=== PATIENT | male | born 2005 | race Caucasian/White ===

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

== ENCOUNTER 2024-05-31 20:58 | Emergency (ER) | payer OTHER ==
[2024-05-31 21:02] VITALS: TEMP 97.7
[2024-05-31] MEDS: ACETAMINOPHEN TAB 325 MG TAB PO STA (21:36)
[2024-05-31] MEDS: SODIUM CHLORIDE 0.9% 1,000 ML IV STA (21:37)
[2024-05-31 21:38] LABS: Basophils % (A) 0 %; Eosinophils # (A) 0.2 k/uL (0-0.7); Eosinophils % (A) 2 %; HCT 43.5 % (39.0-53.0); HGB 15.1 gm/dL (13.0-17.5); Lymphocytes # (A) 1.3 k/uL (1.0-4.8); Lymphocytes % (A) 18 %; MCH 31.4 pg (25.0-35.0); MCHC 34.7 g/dL (31.0-37.0); MCV 90.4 fL (80.0-100.0); Mean Platelet Volume 9.5; Monocytes # (A) 0.5 k/uL (0-1.0); Monocytes % (A) 7 %; Neutrophils # (A) 4.8 k/uL (1.3-7.7); Neutrophils % (A) 70 %; Platelet Count 195 k/uL (150-450); RBC 4.81 m/uL (4.30-5.90); RDW 12.9 % (11.5-15.5); WBC 6.9 k/uL (4.0-11.0)
--- NOTE | 2024-05-31 21:53 | ED ---
Nausea/Vomiting/Diarrhea HPI - General Chief complaint: Nausea/Vomiting/Diarrhea Stated complaint: Vomiting, Nausea Time Seen by Provider: 05/31/24 21:50 Source: patient, family, RN notes reviewed Mode of arrival: ambulatory Limitations: no limitations - History of Present Illness Initial comments: 18-year-old male presented to the ER with a chief complaint of nausea and vomiting. Patient reports this has been intermittent for the past year. Symptoms have been worsening over the past 2 weeks. Patient is reporting nausea and vomiting. States he works midnights and after awaking in the morning he will vomit up the food he ate last night. He denies any current abdominal pain. Family, at bedside, state he has had intermittent abdominal pain within the past year. Patient has tried [id number] omeprazole and Zofran without relief. Patient denies any diarrhea or constipation. Denies any hematochezia, melena, hematic emesis. No significant past medical history. Denies any fevers, chills, chest pain, shortness of breath, urinary complaints or peripheral edema. - Related Data Home Medications Medication Instructions Recorded Confirmed Albuterol Inhaler [Ventolin Hfa 1 puff INHALATION RT-Q6H PRN 03/26/16 06/18/16 Inhaler] Cetirizine HCl [Zyrtec] 10 mg PO DAILY 03/26/16 06/18/16 Fluticasone Propionate [Flonase 1 spray EA NOSTRIL DAILY PRN 03/26/16 06/18/16 Allergy Relief] Montelukast Chew [Singulair Chew] 5 mg PO DAILY 03/26/16 06/18/16 Sulfamethox-Tmp 400-80Mg [Bactrim 1 tab PO Q12HR 06/18/16 06/18/16 SS 400-80 mg] Previous Rx's Medication Instructions Recorded Ondansetron Odt [Zofran Odt] 4 mg PO Q8HR PRN #10 tab 02/19/21 Omeprazole [PriLOSEC] 20 mg PO AC-BRKFST #14 cap 06/01/24 Ondansetron Odt [Zofran Odt] 4 mg PO Q8HR PRN #10 tab 06/01/24 Allergies Allergy/AdvReac Type Severity Reaction Status Date / Time No Known Allergies Allergy Verified 10/13/24 20:59 Review of Systems ROS Statement: Those systems with pertinent positive or pertinent negative responses have been documented in the HPI. ROS Other: All systems not noted in ROS Statement are negative. Past Medical History Past Medical History: No Reported History Additional Past Medical History / Comment(s): "environmental allergies" History of Any Multi-Drug Resistant Organisms: None Reported Past Surgical History: Adenoidectomy, Ear Surgery, Orthopedic Surgery, Tonsillectomy Past Psychological History: No Psychological Hx Reported Smoking Status: Never smoker Past Alcohol Use History: None Reported Past Drug Use History: None Reported General Exam Limitations: no limitations General appearance: alert, in no apparent distress Respiratory exam: Present: normal lung sounds bilaterally. Absent: respiratory distress, wheezes, rales, rhonchi, stridor Cardiovascular Exam: Present: regular rate, normal rhythm, normal heart sounds. Absent: systolic murmur, diastolic murmur, rubs, gallop, clicks GI/Abdominal exam: Present: soft, normal bowel sounds. Absent: distended, tenderness, guarding, rebound, rigid Neurological exam: Present: alert, oriented X3, CN II-XII intact Skin exam: Present: warm, dry, intact, normal color. Absent: rash Course Vital Signs 05/31/24 05/31/24 06/01/24 20:59 22:41 00:30 Temperature 97.7 F Pulse Rate 103 H 64 81 Respiratory 18 16 18 Rate Blood Pressure 118/71 107/68 110/76 O2 Sat by Pulse 94 L 98 95 Oximetry Medical Decision Making - Medical Decision Making Was pt. sent in by a medical professional or institution (, PA, SUPERVISOR INSTRUMENT REPAIR, urgent care, hospital, or [place] health care facility...) When possible be specific @ -No Did you speak to anyone other than the patient for history (EMS, parent, family, police, friend...)? What history was obtained from this source @ -No Did you review nursing and triage notes (agree or disagree)? Why? @ -I reviewed and agree with nursing and triage notes Were old charts reviewed (outside hosp., previous admission, EMS record, old EKG, old radiological studies, urgent care reports/EKG's, [place] health care facility records)? Report findings @ -No old charts were reviewed Differential Diagnosis (chest pain, altered mental status, abdominal pain women, abdominal pain men, vaginal bleeding, weakness, fever, dyspnea, syncope, headache, dizziness, GI bleed, back pain, seizure, CVA, palpatations, mental health, musculoskeletal)? @ -Differential Abdominal Pain Men: Appendicitis, cholecystitis, diverticulosis, ischemic bowel, pancreatitis, hepatitis, UTI, gastroenteritis, AAA, incarcerated hernia, bowel obstruction, constipation, inflammatory bowel, hepatitis, peptic ulcer disease, splenic infarction, perforated viscus, testicular torsion, this is not meant to be an all-inclusive list EKG interpreted by me (3pts min.). @ -None done X-rays interpreted by me (1pt min.). @ -None done CT interpreted by me (1pt min.). @ -CT abdomen pelvis showing wall thickening of the colon. Inflammatory infectious etiology considered. Appendix unremarkable. Fatty liver. Unremarkable gallbladder. No renal calculus or hydronephrosis. U/S interpreted by me (1pt. min.). @ -Gallbladder ultrasound negative for acute process. What testing was considered but not performed or refused? (CT, X-rays, U/S, labs)? Why? @ -None What meds were considered but not given or refused? Why? @ -None Did you discuss the management of the patient with other professionals (professionals i.e. , PA, SUPERVISOR INSTRUMENT REPAIR, lab, RT, psych nurse, social worker health services, acls nurse, teacher, aeronautical engineering officer, patient case coordinator)? Give summary @ -No Was smoking cessation discussed for >3mins.? @ -No Was critical care preformed (if so, how long)? @ -No Were there social determinants of health that impacted care today? How? (Homelessness, low income, unemployed, alcoholism, drug addiction, tra nsportation, low edu. Level, literacy, decrease access to med. care, intermediate, rehab)? @ -No Was there de-escalation of care discussed even if they declined (Discuss DNR or withdrawal of care, Hospice)? DNR status @ -No What co-morbidities impacted this encounter? (DM, HTN, Smoking, COPD, CAD, Cancer, CVA, ARF, Chemo, Hep., AIDS, mental health diagnosis, sleep apnea, morbid obesity)? @ -None Was patient admitted / discharged? Hospital course, mention meds given and route, prescriptions, significant lab abnormalities, going to OR and other pertinent info. @ -Discharge. 18-year-old male presenting to the ER with a chief complaint of nausea and vomiting x 5 months. History and physical exam completed. Vitals within normal limits. Patient in no signs of acute distress and nontoxic-appearing. Exam remarkable for mild tenderness to lower abdomen. Normal bowel sounds with no rebound or guarding. Laboratory studies and imaging will be completed, patient is agreeable to this. Laboratory studies unremarkable. Urinalysis unremarkable. Gallbladder ultrasound initially obtained and negative. CT abdomen pelvis obtained at that time and showing wall thickening of the colon concerning of inflammatory infectious etiology. Patient given IV fluids and Tylenol in the ER for symptom control, with improvement. Upon reevaluation, patient resting comfortably examined no signs of acute distress. Results discussed with patient, all questions answered. I advised close follow-up with GI and PCP referrals given. Zofran and omeprazole prescribed. Strict return parameters discussed. Patient discharged in stable condition with follow-up to PCP. Patient verbally expressed understanding and agreement with care plan. Case discussed with ED attending, . Undiagnosed new problem with uncertain prognosis? @ -No Drug Therapy requiring intensive monitoring for toxicity (Heparin, Nitro, Insulin, Cardizem)? @ -No Were any procedures done? @ -No Diagnosis/symptom? @ -Wall thickening of colon/ nausea & vomiting Acute, or Chronic, or Acute on Chronic? @ -Acute Uncomplicated (without systemic symptoms) or Complicated (systemic symptoms)? @ -Complicated Side effects of treatment? @ -No Exacerbation, Progression, or Severe Exacerbation? @ -No Poses a threat to life or bodily function? How? (Chest pain, [place], [place], pneumonia, PE, COPD, DKA, ARF, appy, cholecystitis, CVA, Diverticulitis, Homicidal, Suicidal, threat to staff... and all critical care pts) @ -No - Lab Data Result diagrams: 05/31/24 21:29 05/31/24 21:29 Lab Results 05/31/24 05/31/24 05/31/24 Range/Units 21:29 21:29 21:29 WBC 6.9 (4.0-11.0) k/uL RBC 4.81 (4.30-5.90) m/uL Hgb 15.1 (13.0-17.5) gm/dL Hct 43.5 (39.0-53.0) % MCV 90.4 (80.0-100.0) fL MCH 31.4 (25.0-35.0) pg MCHC 34.7 (31.0-37.0) g/dL RDW 12.9 (11.5-15.5) % Plt Count 195 (150-450) k/uL MPV 9.5 Neutrophils % 70 % Lymphocytes % 18 % Monocytes % 7 % Eosinophils % 2 % Basophils % 0 % Neutrophils # 4.8 (1.3-7.7) k/uL Lymphocytes # 1.3 (1.0-4.8) k/uL Monocytes # 0.5 (0-1.0) k/uL Eosinophils # 0.2 (0-0.7) k/uL Basophils # 0.0 (0-0.2) k/uL Sodium 139 (137-145) mmol/L Potassium 4.3 (3.5-5.1) mmol/L Chloride 107 (98-107) mmol/L Carbon Dioxide 25 (22-30) mmol/L Anion Gap 7 mmol/L BUN 11 (9-20) mg/dL Creatinine 0.87 (0.66-1.25) mg/dL Est GFR (CKD-EPI)AfAm >90 (>60 ml/min/1.73 sqM) Est GFR (CKD-EPI)NonAf >90 (>60 ml/min/1.73 sqM) Glucose 98 (74-99) mg/dL Plasma Lactic Acid Sean 1.1 (0.7-2.0) mmol/L Calcium 9.6 (8.4-10.2) mg/dL Total Bilirubin 0.8 (0.2-1.3) mg/dL AST 18 (17-59) U/L ALT 22 (4-49) U/L Alkaline Phosphatase 46 (38-126) U/L Total Protein 6.2 L (6.3-8.2) g/dL Albumin 4.1 (3.5-5.0) g/dL Amylase 49 (30-110) U/L Lipase 57 (23-300) U/L Urine Color Urine Appearance (Clear) Urine pH (5.0-8.0) Ur Specific [place] (1.001-1.035) Urine Protein (Negative) Urine Glucose (UA) (Negative) Urine Ketones (Negative) Urine Blood (Negative) Urine Nitrite (Negative) Urine Bilirubin (Negative) Urine Urobilinogen (<2.0) mg/dL Ur Leukocyte Esterase (Negative) Urine RBC (0-5) /hpf Urine WBC (0-5) /hpf Ur Squamous Epith Cells (0-4) /hpf Urine Mucus (None) /hpf 05/31/24 Range/Units 23:00 WBC (4.0-11.0) k/uL RBC (4.30-5.90) m/uL Hgb (13.0-17.5) gm/dL Hct (39.0-53.0) % MCV (80.0-100.0) fL MCH (25.0-35.0) pg MCHC (31.0-37.0) g/dL RDW (11.5-15.5) % Plt Count (150-450) k/uL MPV Neutrophils % % Lymphocytes % % Monocytes % % Eosinophils % % Basophils % % Neutrophils # (1.3-7.7) k/uL Lymphocytes # (1.0-4.8) k/uL Monocytes # (0-1.0) k/uL Eosinophils # (0-0.7) k/uL Basophils # (0-0.2) k/uL Sodium (137-145) mmol/L Potassium (3.5-5.1) mmol/L Chloride (98-107) mmol/L Carbon Dioxide (22-30) mmol/L Anion Gap mmol/L BUN (9-20) mg/dL Creatinine (0.66-1.25) mg/dL Est GFR (CKD-EPI)AfAm (>60 ml/min/1.73 sqM) Est GFR (CKD-EPI)NonAf (>60 ml/min/1.73 sqM) Glucose (74-99) mg/dL Plasma Lactic Acid Sean (0.7-2.0) mmol/L Calcium (8.4-10.2) mg/dL Total Bilirubin (0.2-1.3) mg/dL AST (17-59) U/L ALT (4-49) U/L Alkaline Phosphatase (38-126) U/L Total Protein (6.3-8.2) g/dL Albumin (3.5-5.0) g/dL Amylase (30-110) U/L Lipase (23-300) U/L Urine Color Colorless Urine Appearance Clear (Clear) Urine pH 6.5 (5.0-8.0) Ur Specific [place] 1.032 (1.001-1.035) Urine Protein Negative (Negative) Urine Glucose (UA) Negative (Negative) Urine Ketones Negative (Negative) Urine Blood Trace H (Negative) Urine Nitrite Negative (Negative) Urine Bilirubin Negative (Negative) Urine Urobilinogen <2.0 (<2.0) mg/dL Ur Leukocyte Esterase Negative (Negative) Urine RBC 1 (0-5) /hpf Urine WBC 1 (0-5) /hpf Ur Squamous Epith Cells <1 (0-4) /hpf Urine Mucus Rare H (None) /hpf - Radiology Data Radiology results: report reviewed, image reviewed Disposition Clinical Impression: Nausea & vomiting, Colon wall thickening Disposition: HOME SELF-CARE Condition: Stable Instructions (If sedation given, give patient instructions): Acute Nausea and Vomiting (ED) Additional Instructions: You may take Zofran every 8 hours for nausea. Follow-up with a GI specialist. I also recommend close follow-up with PCP. Return to the ER for any new or worsening concerns. [facility]: [id number], [place] [address] Prescriptions: Omeprazole [PriLOSEC] 20 mg PO AC-BRKFST #14 cap Ondansetron Odt [Zofran Odt] 4 mg PO Q8HR PRN #10 tab PRN Reason: Nausea Is patient prescribed a controlled substance at d/c from ED?: No Referrals: Samuel Daniel MD [Primary Care Provider] - 1-2 days Millie Pa MD [STAFF PHYSICIAN] - 1-2 days Time of Disposition: 00:25
--- NOTE | 2024-05-31 22:11 | US ---
EXAMINATION TYPE: US gallbladder DATE OF EXAM: 05/31/2024 COMPARISON: NONE CLINICAL INDICATION: Male, 18 years old with history of nausea and vomiting; x 5 months; Patient jamar es any other signs, symptoms, or relevant history TECHNIQUE: Grayscale and color Doppler imaging of the right upper quadrant was performed. FINDINGS: EXAM MEASUREMENTS: Liver Length: 15.5 cm Gallbladder Wall: 0.1 cm CBD: 0.4 cm Right Kidney: 11.7 x 4.7 x 5.4 cm PUMP RUNNER NOTES: Pancreas: Tail obscured by overlying bowel gas Liver: wnl Gallbladder: Fold noted at fundus Evidence for sonographic Cardozo's sign: No CBD: wnl Right Kidney: wnl IMPRESSION: No acute ultrasound abnormality right upper quadrant [facility], Workstation: [facility], 05/31/2024 10:09 PM
[2024-05-31 22:21] LABS: ALT 22 U/L (4-49); AST 18 U/L (17-59); African American GFR (CKD) >90 (>60 ml/min/1.73 sqM); Albumin 4.1 g/dL (3.5-5.0); Alkaline Phosphatase 46 U/L (38-126); Amylase 49 U/L (30-110); Anion Gap 7 mmol/L; Blood Urea Nitrogen 11 mg/dL (9-20); Calcium 9.6 mg/dL (8.4-10.2); Carbon Dioxide 25 mmol/L (22-30); Chloride 107 mmol/L (98-107); Glucose 98 mg/dL (74-99); Lipase 57 U/L (23-300); Non-African American GFR(CKD) >90 (>60 ml/min/1.73 sqM); Potassium 4.3 mmol/L (3.5-5.1); Sodium 139 mmol/L (137-145); Total Bilirubin 0.8 mg/dL (0.2-1.3); Total Protein 6.2 g/dL (6.3-8.2)
[2024-05-31 23:16] LABS: Appearance,Urine Clear (Clear); Bilirubin,Urine Negative (Negative); Blood,Urine Trace (Negative); Color,Urine Colorless; Glucose,Urine (UA) Negative (Negative); Ketones,Urine Negative (Negative); Leukocyte Esterase,Urine Negative (Negative); Mucus,Urine Rare /hpf; Nitrite,Urine Negative (Negative); PH, Urine 6.5 (5.0-8.0); Protein,Urine Negative (Negative); RBC,Urine 1 /hpf (0-5); Specific Gravity,Urine 1.032 (1.001-1.035); Squamous Epithelial Cell,Urine <1 /hpf (0-4); Urobilinogen,Urine <2.0 mg/dL (<2.0); WBC,Urine 1 /hpf (0-5)
[2024-05-31] MEDS: SODIUM CHLORIDE 0.9% 500 ML 500 ML IV STA (23:41)
--- NOTE | 2024-06-01 00:09 | CT ---
EXAM: CT Abdomen and Pelvis With Intravenous Contrast CLINICAL HISTORY: ITS.REASON CT Reason: nausea/vomiting abd pain TECHNIQUE: Axial computed tomography images of the abdomen and pelvis with intravenous contrast. CTDI is 21.5 mGy and DLP is 1036 mGy-cm. This CT exam was performed using one or more of the following dose reduction techniques: automated exposure control, adjustment of the mA and/or kV according to patient size, and/or use of iterative reconstruction technique. COMPARISON: 05/31/2024. FINDINGS: Lung bases: Subsegmental atelectasis noted at the right lung base. Pleural space: Unremarkable. No pneumothorax. No pleural effusions. Heart: Heart is normal in size. ABDOMEN: Liver: Fatty liver. The liver and the spleen enhance uniformly. A 1. 5 cm probable simple cyst right lobe of liver. Gallbladder and bile ducts: See below. Pancreas: See below. Spleen: See above. Adrenals: The adrenal glands, the head, body, tail of the pancreas and the gallbladder are unremarkable. Kidneys and ureters: Evaluation of delayed imaging reveals the renal collecting systems and the ureters to be unremarkable. No hydronephrosis. Stomach and bowel: Moderate quantity of ingested material in the stomach. Wall thickening of the colon. Inflammatory or infectious etiology should be considered. Diverticulosis without diverticulitis. No obstruction. PELVIS: Appendix: The appendix is seen on coronal image 42 and is unremarkable. Bladder: Unremarkable. No mass. Reproductive: Unremarkable as visualized. ABDOMEN and PELVIS: Intraperitoneal space: Unremarkable. No free air. No significant fluid collection. Bones/joints: No acute fracture. No dislocation. No spondylolysis. Soft tissues: Ischiorectal fat is clean. Vasculature: Portal vein is patent. Flow is noted within the celiac, SMA, the renal arteries, and EMILIE. No abdominal aortic aneurysm. Lymph nodes: Unremarkable. No retroperitoneal lymphadenopathy. IMPRESSION: 1. Wall thickening of the colon. Inflammatory or infectious etiology should be considered. 2. The appendix is unremarkable. 3. Fatty liver. 4. The gallbladder is unremarkable. 5. No renal calculus or hydronephrosis.
[2024-06-01 01:08] VITALS: BP 110/76; PULSE 81; RESP 18
== END 2024-06-01 00:30 | disposition home or self-care (01) ==
LOC: EC 20:58
DX: K63.89 Other specified diseases of intestine (principal)
CPT/HCPCS: 36415; 74177; 76705; 80053; 81001; 82150; 83605; 83690; 85025; 87086; 96360; 96361; 99284

== ENCOUNTER 2024-10-07 09:50 | Emergency (ER) | payer OTHER ==
[2024-10-07 09:57] VITALS: RESP 18; TEMP 97.4
--- NOTE | 2024-10-07 10:18 | ED ---
General Adult HPI - General Source: patient, family, RN notes reviewed Mode of arrival: ambulatory Limitations: no limitations <Jennifer Hammonds - Last Filed: 10/07/24 10:17> - General Source: patient, family, RN notes reviewed Mode of arrival: ambulatory Limitations: no limitations <Rufino Anderson - Last Filed: 10/07/24 15:26> - General Chief complaint: Dizziness Stated complaint: Dizziness, near syncope, weakness Time Seen by Provider: 10/07/24 10:05 - History of Present Illness Initial comments: Quick note18 male presents emergency room with mother for complaint of near syncope x 2. States that yesterday evening he was in the shower when he felt dizzy and lightheaded and again symptoms happened while he was in class. Currently patient states that he feels weak. Is concerned for possible blood clot in his left arm as he donated plasma on Saturday and there is significant bruising and pain. (Jennifer Hammonds) 18-year-old male presents emergency department chief complaint of feeling lightheaded. Patient states that yesterday was in the shower he states he never passed out. Patient states he just generally feels tired. Patient states that he donates plasma twice a week states has not been drinking as much fluids as normal. Patient also states he has some bruising discomfort to his left arm concerned about possible blood clot. (Rufino Anderson) - Related Data Home Medications Medication Instructions Recorded Confirmed Albuterol Inhaler [Ventolin Hfa 1 puff INHALATION RT-Q6H PRN 03/26/16 06/18/16 Inhaler] Cetirizine HCl [Zyrtec] 10 mg PO DAILY 03/26/16 06/18/16 Fluticasone Propionate [Flonase 1 spray EA NOSTRIL DAILY PRN 03/26/16 06/18/16 Allergy Relief] Montelukast Chew [Singulair Chew] 5 mg PO DAILY 03/26/16 06/18/16 Sulfamethox-Tmp 400-80Mg [Bactrim 1 tab PO Q12HR 06/18/16 06/18/16 SS 400-80 mg] Previous Rx's Medication Instructions Recorded Ondansetron Odt [Zofran Odt] 4 mg PO Q8HR PRN #10 tab 02/19/21 Omeprazole [PriLOSEC] 20 mg PO AC-BRKFST #14 cap 06/01/24 Ondansetron Odt [Zofran Odt] 4 mg PO Q8HR PRN #10 tab 06/01/24 Allergies Allergy/AdvReac Type Severity Reaction Status Date / Time No Known Allergies Allergy Verified 10/07/24 13:02 Review of Systems ROS Other: All systems not noted in ROS Statement are negative. <Jennifer Hammonds - Last Filed: 10/07/24 10:17> ROS Other: All systems not noted in ROS Statement are negative. <Rufino Anderson - Last Filed: 10/07/24 15:26> ROS Statement: Those systems with pertinent positive or pertinent negative responses have been documented in the HPI. Past Medical History Past Medical History: No Reported History Additional Past Medical History / Comment(s): "environmental allergies" History of Any Multi-Drug Resistant Organisms: None Reported Past Surgical History: Adenoidectomy, Ear Surgery, Orthopedic Surgery, Tonsillectomy Past Psychological History: No Psychological Hx Reported Smoking Status: Current every day smoker Past Alcohol Use History: None Reported Past Drug Use History: Marijuana <Jennifer Hammonds - Last Filed: 10/07/24 10:17> General Exam Limitations: no limitations <Jennifer Hammonds - Last Filed: 10/07/24 10:17> Limitations: no limitations General appearance: alert, in no apparent distress Head exam: Present: atraumatic, normocephalic, normal inspection Neck exam: Present: normal inspection, full ROM. Absent: tenderness, meningismus, lymphadenopathy Respiratory exam: Present: normal lung sounds bilaterally. Absent: respiratory distress, wheezes, rales, rhonchi, stridor Cardiovascular Exam: Present: regular rate, normal rhythm, normal heart sounds. Absent: systolic murmur, diastolic murmur, rubs, gallop, clicks GI/Abdominal exam: Present: soft, normal bowel sounds. Absent: distended, tenderness, guarding, rebound, rigid Extremities exam: Present: other (Left arm neurovascular intact) <Rufino Anderson - Last Filed: 10/07/24 15:26> - General Exam Comments Initial Comments: Visual Physical Exam Vital signs reviewed General: Well-appearing, nontoxic, no acute distress. Head: Normocephalic, atraumatic Eyes: PERRLA, EOMI ENT: Airway patent Chest: Nonlabored breathing Skin: No visual rash, normal skin tone Neuro: Alert and oriented 3 Musculoskeletal: No gross abnormalities (Jennifer Hammonds) Course Vital Signs 10/07/24 10/07/24 09:54 13:19 Temperature 97.4 F L Pulse Rate 71 67 Respiratory 18 18 Rate Blood Pressure 134/74 123/75 O2 Sat by Pulse 100 99 Oximetry EKG Findings - EKG Comments: EKG Findings:: EKG performed at 11: 16 sinus rhythm with a rate of 67 AL 128 QRS 106 QT/QTc 385/400 - EKG Results: EKG: interpreted by ERMD <Rufino Anderson - Last Filed: 10/07/24 15:26> Medical Decision Making <Jennifer Hammonds - Last Filed: 10/07/24 10:17> - Lab Data Result diagrams: 10/07/24 11:18 10/07/24 11:18 <Rufino Anderson - Last Filed: 10/07/24 15:26> - Medical Decision Making I completed the quick note portion of this chart signed Jennifer Hammonds PA-C (Jennifer Hammonds) Was pt. sent in by a medical professional or institution ([facility], [facility], urgent care, hospital, or halfway...) When possible be specific @ -No Did you speak to anyone other than the patient for history (EMS, parent, family, police, friend...)? What history was obtained from this source @ -No Did you review nursing and triage notes (agree or disagree)? Why? @ -I reviewed and agree with nursing and triage notes Were old charts reviewed (outside hosp., previous admission, EMS record, old EKG, old radiological studies, urgent care reports/EKG's, halfway records)? Report findings @ -No old charts were reviewed Differential Diagnosis (chest pain, altered mental status, abdominal pain women, abdominal pain men, vaginal bleeding, weakness, fever, dyspnea, syncope, headache, dizziness, GI bleed, back pain, seizure, CVA, palpatations, mental health, musculoskeletal)? @ -Differential Syncope: Valvular disease, hypertrophic cardiomyopathy, pulmonary embolism, tamponade, tachycardia, bradycardia, SC, hypovolemia, hemorrhage, dissection, anemia, int racranial hemorrhage, seizure, hypoglycemia, carbon monoxide poisoning, this is not meant to be an all-inclusive list. EKG interpreted by me (3pts min.). @ -As above X-rays interpreted by me (1pt min.). @ -None done CT interpreted by me (1pt min.). @ -None done U/S interpreted by me (1pt. min.). @ -Ultrasound venous Doppler left negative for acute DVT What testing was considered but not performed or refused? (CT, X-rays, U/S, labs)? Why? @ -None What meds were considered but not given or refused? Why? @ -None Did you discuss the management of the patient with other professionals (professionals i.e. Dr., PA, [facility], lab, RT, psych nurse, marriage and family social worker, soft tile setter, teacher, morals squad police officer, caseworker protective services)? Give summary @ -No Was smoking cessation discussed for >3mins.? @ -No Was critical care preformed (if so, how long)? @ -No Were there social determinants of health that impacted care today? How? (Homelessness, low income, unemployed, alcoholism, drug addiction, transportation, low edu. Level, literacy, decrease access to med. care, half-way, rehab)? @ -No Was there de-escalation of care discussed even if they declined (Discuss DNR or withdrawal of care, Hospice)? DNR status @ -No What co-morbidities impacted this encounter? (DM, HTN, Smoking, COPD, CAD, Cancer, CVA, ARF, Chemo, Hep., AIDS, mental health diagnosis, sleep apnea, morbid obesity)? @ -None Was patient admitted / discharged? Hospital course, mention meds given and route, prescriptions, significant lab abnormalities, going to OR and other pertinent info. @ -[Discharge patient is alert and IV fluids. Patient has no evidence of DVT laboratory is unremarkable it is more likely from donating plasma. Undiagnosed new problem with uncertain prognosis? @ -No Drug Therapy requiring intensive monitoring for toxicity (Heparin, Nitro, Insulin, Cardizem)? @ -No Were any procedures done? @ -No Diagnosis/symptom? @ -Lightheadedness, dehydration Acute, or Chronic, or Acute on Chronic? @ -Acute Uncomplicated (without systemic symptoms) or Complicated (systemic symptoms)? @ -Uncomplicated Side effects of treatment? @ -No Exacerbation, Progression, or Severe Exacerbation? @ -No Poses a threat to life or bodily function? How? (Chest pain, USA, SC, pneumonia, PE, COPD, DKA, ARF, appy, cholecystitis, CVA, Diverticulitis, Homicidal, S uicidal, threat to staff... and all critical care pts) @ -No (Rufino Anderson) - Lab Data Lab Results 10/07/24 10/07/24 Range/Units 11:18 11:18 WBC 7.3 (4.0-11.0) k/uL RBC 4.77 (4.30-5.90) m/uL Hgb 14.7 (13.0-17.5) gm/dL Hct 43.7 (39.0-53.0) % MCV 91.7 (80.0-100.0) fL MCH 30.9 (25.0-35.0) pg MCHC 33.7 (31.0-37.0) g/dL RDW 12.1 (11.5-15.5) % Plt Count 200 (150-450) k/uL MPV 8.7 Neutrophils % 64 % Lymphocytes % 22 % Monocytes % 7 % Eosinophils % 4 % Basophils % 1 % Neutrophils # 4.7 (1.3-7.7) k/uL Lymphocytes # 1.6 (1.0-4.8) k/uL Monocytes # 0.5 (0-1.0) k/uL Eosinophils # 0.3 (0-0.7) k/uL Basophils # 0.1 (0-0.2) k/uL Sodium 138 (137-145) mmol/L Potassium 4.2 (3.5-5.1) mmol/L Chloride 106 (98-107) mmol/L Carbon Dioxide 28 (22-30) mmol/L Anion Gap 4 mmol/L BUN 7 L (9-20) mg/dL Creatinine 0.91 (0.66-1.25) mg/dL Est GFR (CKD-EPI)AfAm >90 (>60 ml/min/1.73 sqM) Est GFR (CKD-EPI)NonAf >90 (>60 ml/min/1.73 sqM) Glucose 89 (74-99) mg/dL Calcium 9.4 (8.4-10.2) mg/dL Total Bilirubin 0.7 (0.2-1.3) mg/dL AST 21 (17-59) U/L ALT 28 (4-49) U/L Alkaline Phosphatase 40 (38-126) U/L Total Protein 6.0 L (6.3-8.2) g/dL Albumin 4.1 (3.5-5.0) g/dL Disposition <Jennifer Hammonds - Last Filed: 10/07/24 10:17> Is patient prescribed a controlled substance at d/c from ED?: No Time of Disposition: 12:50 <Rufino Anderson - Last Filed: 10/07/24 15:26> Clinical Impression: Dehydration, Lightheadedness Disposition: HOME SELF-CARE Condition: Stable Instructions (If sedation given, give patient instructions): Lightheadedness (ED) Additional Instructions: Please return to the Emergency Department if symptoms worsen or any other concerns. Referrals: Samuel Daniel MD [Primary Care Provider] - 1-2 days
--- NOTE | 2024-10-07 11:04 | US ---
EXAMINATION TYPE: US venous doppler duplex UE LT DATE OF EXAM: 10/07/2024 COMPARISON: NONE CLINICAL INDICATION: Male, 18 years old with history of ecchymosis and pain after plasma donation; di zziness after donating plasma TECHNIQUE: Grayscale, color Doppler and spectral Doppler imaging of the upper extremity. SIDE PERFORMED: Left VESSELS IMAGED: IJV Subclavian Vein Axilla Vein Brachial Vein(s) Radial Paired Veins Ulnar Paired Veins Cephalic Vein* Basilic Vein* (*superficial vessels) FINDINGS: Left Arm: no evidence for DVT Grayscale, color doppler, spectral doppler imaging performed of the deep veins of the upper extremiti es. IMPRESSION: 1. Left upper extremity ultrasound negative for deep venous thrombosis [facility] Adams, , 10/07/2024 11:02 AM
[2024-10-07 11:35] LABS: Basophils # (A) 0.1 k/uL (0-0.2); Basophils % (A) 1 %; Eosinophils # (A) 0.3 k/uL (0-0.7); Eosinophils % (A) 4 %; HCT 43.7 % (39.0-53.0); HGB 14.7 gm/dL (13.0-17.5); Lymphocytes # (A) 1.6 k/uL (1.0-4.8); Lymphocytes % (A) 22 %; MCH 30.9 pg (25.0-35.0); MCHC 33.7 g/dL (31.0-37.0); MCV 91.7 fL (80.0-100.0); Mean Platelet Volume 8.7; Monocytes # (A) 0.5 k/uL (0-1.0); Monocytes % (A) 7 %; Neutrophils # (A) 4.7 k/uL (1.3-7.7); Neutrophils % (A) 64 %; Platelet Count 200 k/uL (150-450); RBC 4.77 m/uL (4.30-5.90); RDW 12.1 % (11.5-15.5); WBC 7.3 k/uL (4.0-11.0)
[2024-10-07] MEDS: SODIUM CHLORIDE 0.9% 1,000 ML IV ONE (11:42)
[2024-10-07] MEDS: SODIUM CHLORIDE 0.9% 500 ML 500 ML IV ONE (11:42)
[2024-10-07 12:05] LABS: ALT 28 U/L (4-49); AST 21 U/L (17-59); African American GFR (CKD) >90 (>60 ml/min/1.73 sqM); Albumin 4.1 g/dL (3.5-5.0); Alkaline Phosphatase 40 U/L (38-126); Anion Gap 4 mmol/L; Blood Urea Nitrogen 7 mg/dL (9-20); Calcium 9.4 mg/dL (8.4-10.2); Carbon Dioxide 28 mmol/L (22-30); Chloride 106 mmol/L (98-107); Glucose 89 mg/dL (74-99); Non-African American GFR(CKD) >90 (>60 ml/min/1.73 sqM); Potassium 4.2 mmol/L (3.5-5.1); Sodium 138 mmol/L (137-145); Total Bilirubin 0.7 mg/dL (0.2-1.3)
[2024-10-07 13:20] VITALS: BP 123/75; PULSE 67
== END 2024-10-07 13:20 | disposition home or self-care (01) ==
LOC: EC 09:50
DX: E86.0 Dehydration (principal); F17.200 Nicotine dependence, unspecified, uncomplicated
CPT/HCPCS: 36415; 80053; 85025; 93005; 96360; 99284